=== PATIENT | male | born 1960 | race Caucasian/White ===

== ENCOUNTER 2019-09-05 10:37 | Inpatient (IN) | payer BC ==
--- NOTE | 2019-09-05 12:33 | PDOC.FPRHP ---
- History of Present Illness Chief Complaint: impaired depth perception History of Present Illness: Pt states that this morning at 7am he noticed he had issues with his depth perception when he was trying to put on his shoes. It did not change with positional changes, and he states that the depth perception issues have since resolved. He states that it lasted until he made it to the [facility] ED which was a couple of hours. 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 Patient states he was on a statin for a short while before being taken off of it because he "didn't need it anymore." He currently denies issues with his depth perception, sensory/motor changes, trouble walking, chest pain, shortness of breath, nausea, vomiting, diarrhea, or positional change causing symptoms. - Allergies/Adverse Reactions Allergies Allergy/AdvReac Type Severity Reaction Status Date / Time No Known Allergies Allergy Verified 09/05/19 13:46 - Home Medications Medication Instructions Recorded Confirmed Type Lisinopril 10 mg PO DAILY 09/05/19 09/05/19 History Aspirin-Dipyridamole [Aggrenox] 1 cap PO BID #60 cap 09/06/19 Rx Aspirin-Dipyridamole [Aggrenox] 1 cap PO BID #60 cap 09/06/19 Rx Atorvastatin Calcium 40 mg PO DAILY #60 tablet 09/06/19 Rx Atorvastatin Calcium [Lipitor] 40 mg PO DAILY #30 tab 09/06/19 Rx - History PMH: HTN, L occipital hemorrahic stroke with residual bilateral visual field deficits, seasonal allergies Maintainence: sees opthamologist, last seen approx 1.5 years ago[address] Sees PCP Dr. Hackett yearly. PSH:hernia repair @ 17 y/o on R. Rt thumb repair. Meds: lisinopril 10mg qd, Plavix 75mg qd Allergies: NKDA FH: Mother-mouth cancer. Dad-DM SH: denies alcohol, tobacco, and drug use - Review of Systems General: denies: fever/chills, weight/appetite/sleep changes Eyes: reports: other (residual bilateral right-sided visual field deficits; depth perception resolved). denies: eye pain ENT: reports: rhinorrhea (seasonal allergies). denies: nasal congestion Respiratory: denies: cough, shortness of breath Cardiovascular: denies: chest pain, edema Gastrointestinal: denies: nausea, vomiting, diarrhea, constipation Genitourinary: denies: incontinence, dysuria Skin: denies: rashes, lesions Musculoskeletal: denies: pain, tenderness Neurological: reports: other (right-sided bilateral visual field deficits). denies: numbness, syncope, seizure, weakness - Vital signs BP: [129/72] HR: [62] RR: [16] Tmax: [98.9] Pox: [97]% on [RA] Wt: [93.9kg] - Physical Exam Constitutional: NAD, awake, alert and oriented, well developed HEENT: normocephalic and atraumatic, PERRLA, EOMI, normal nasal mucosa, MMM Neck: supple, FROM Chest: no-tender to palpation, no lesions Heart: RRR, normal S1/S2 Lungs: CTAB, no respiratory distress, no wheezing Abdomen: soft, non-tender, bowel sounds present Musculoskeletal: normal structure, normal tone Neurological: no focal deficit, CN II-XII intact (Bilateral R-sided visual field deficit, HINTS exam neg), normal sensation, DTRs 2+ Skin: no rash/lesions, good turgor, no jaundice Heme/Lymphatic: no unusual bruising or bleeding, no purpura Psychiatric: normal mood and affect, good judgment and insight, intact recent and remote memory FMR H&P: Results - Labs Result Diagrams: 09/06/19 05:41 09/06/19 05:41 - EKG Interpretation EKG: Normal sinus rhythm - Radiology Interpretation CT scan - head Status: report reviewed by me (CT Brain: negative for acute intracranial process CTA: negative for stenosis) FMR H&P: A/P - Problem List (1) HTN (hypertension) Status: Acute Code(s): I10 - ESSENTIAL (PRIMARY) HYPERTENSION (2) Seasonal allergies Status: Acute Code(s): J30.2 - OTHER SEASONAL ALLERGIC RHINITIS - Plan 59M with PMHx of L occipital hemorrhagic stroke with residual bilateral right- sided visual field deficits, HTN, seasonal allergies admitted to obs for TIA workup #TIA Workup -Patient had deficits with his depth perception this am, lasted a few hours and has since resolved -patient denies motor/sensory deficits -neuro exam normal except for residual bilateral right-sided visual field deficit -CT head negative -CTA head negative for stenosis -EKG nsr -MRI brain to look for ischemic changes -stroke floor with telemetry to monitor for arrhythmias -FLP, patient reportedly was on a statin in the past but has since stopped -A1C, wt 93kg with family hx of DM -start patient on atorvastatin 40mg at this time -patient already takes plavix as a home medication, will continue home meds without starting asa #HTN -allow for permissive htn at this time #Seasonal allergies -patient does not take any home meds at this time -will try flonase, encouraged patient to use netipot with distilled water at home Diet: HH Dispo: stroke obs for tia workup Code: Full Code FMR H&P: Upper Level - Plan Date/Time: 09/05/19 1231 I, Stefan Nelson, have evaluated this patient and agree with findings/plan as outlined by intern brand resident. Pertinent changes/additions are listed here. This is a 59 yo male with a pmh of HTN and an occipital hemorrhagic stroke 3 years ago who presented to an outside ER with cc of poor depth perception. 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 He denies any other weakness, paresthesias, dizziness, or SOB. He denies chest pain, vertigo, or nausea. Objective Neuro: CN II-XII intact, no weakness, change in sensation Cardio: RRR, no murmur Respiratory: CTAB, no adventitious sounds Labs/Imaging -Negative CT/CTA of head and neck for intracranial lesions or significant arterial stenosis Please see Fisheries Biologist note for further information A/P TIA vs Stroke rule out -Admit to stroke -Pending AM MRI -EKG NSR, no need for echo at this time -Start low dose statin, AM FLP HTN -Holding home lisinopril for permissive HTN Code: Full Prophylaxis: SCDs Family: Daughter at bedside Diet: HH Fluids: SL Disposition: Home tomorrow PCP: Dr. Lew NEWTON Addendum - Attending - Attending Attestation Date/Time: 09/06/191953 I personally evaluated the patient and discussed the management with Dr. Kat on 09/05/2019 I agree with the History, Examination, Assessment and Plan documented above with any addition or exceptions noted below - 59 yo male with h/o HTN and CVA in past with residual visual field defect presented with episode of change in depth perception. Currently symptoms have resolved. Denies any upper or lower extremity weakness. Denies any sensation. Denies any VARGAS. PMH/PSH/Meds/SH reviewed and agree with resident's documentation. Afebrile VSS Exam repeated by me and agree with resident's findings. CT brain- negative for acute findings. MRI brain - acute left parietal infarct; possible thrombosed vessel versus punctate hemorrhage. A/P: 1) Acute CVA with no residual- repeat CT later tonight to evaluate for hemorrhage. Hold plavix until hemorrhage evaluated. Stroke team and neuro consult. 2) HTN- permissive hypertension; continue to monitor.
[2019-09-05 13:41] VITALS: BMI 27.6
[2019-09-05] MEDS: Fluticasone Propionate Nasal Spray 16 gm Bottle NASAL SCH (14:04)
--- NOTE | 2019-09-05 16:34 | MRI ---
Brain MRI without IV contrast: HISTORY: Vision changes prior stroke protocol COMPARISON: Head CT and head CT angiogram 09/05/2019 FINDINGS: Small focus of increased diffusion and decreased ADC map findings in the posterior left parietal prim arily centrum semiovale region. This is evidence for small primarily white matter infarct, acute. In the region immediately adjacent to the infarct there is a tiny low signal focus on gradient echo i maging which is nonspecific, conceivably this could represent a tiny thrombosed artery or a small hemorrhagic focus. Recommend follow-up noncontrast CT scan examination in 4 to 6 hours to evaluate fo r the possibility of a tiny focus of acute hemorrhage. No evidence for significant mass or midline shift. Visualized expected flow voids are present. IMPRESSION: Evidence for small acute primarily white matter infarct changes in the left posterior parietal region . Tiny hypodense focus on gradient echo images in the sulcus adjacent to the region of the focus of inc reased diffusion possibly a tiny thrombosed artery versus a tiny focus of acute punctate hemorrhage. Recommend consideration for a follow-up CT scan in 4-6 hours.
[2019-09-05] MEDS ORDERED: hydrALAZINE 20 MG/ML VIAL SLOW IVP PRN (18:48)
[2019-09-05] MEDS ORDERED: Atorvastatin Calcium 40 MG TAB PO SCH (21:00)
--- NOTE | 2019-09-05 21:42 | CT ---
EXAM: CT brain without contrast HISTORY: Small area of hemorrhage seen in the left parietal region on prior MRI. COMPARISON: MRI brain 09/05/2019 TECHNIQUE: Multiple contiguous axial images were obtained and a CT of the brain without contrast. FINDINGS: Encephalomalacia is seen in the left parietal lobe. There is a developing hypodensity in th e left parietal lobe at the area where and area of restricted diffusion is seen on MRI consistent with an evolving subacute infarction. There is no evidence of hydrocephalus, intracranial hemorrhage , or extra-axial fluid collection that are able to be seen on this exam.. The calvarium and overlying soft tissues are unremarkable. The visualized paranasal sinuses and masto id air cells are well aerated. IMPRESSION: Evolving left parietal infarction without CT evidence of intracranial hemorrhage.
--- NOTE | 2019-09-06 05:51 | PDOC.FM ---
- Subjective Subjective: Patient reports that he is doing well, no concerns. He does not have any residual symptoms this morning from his stroke yesterday, his depth perception is at baseline. He does not complain of any sensory or motor deficits this morning. Discussed results of MRI and repeat CT scan last night. Patient curious as to what caused his stroke, but has no concerns. - Objective Vital Signs & Weight: Vital Signs (12 hours) Temp Pulse Resp BP Pulse Ox 09/06/19 03:47 98 F 60 18 123/73 98 09/06/19 00:00 97.7 F 52 L 16 141/77 H 97 09/05/19 19:38 98.6 F 60 16 128/74 95 09/05/19 18:08 98.8 F 61 20 142/79 H 98 Weight Weight 97.636 kg Result Diagrams: 09/06/19 05:41 09/06/19 05:41 Phys Exam - Physical Examination Constitutional: NAD HEENT: moist MMs, sclera anicteric Neck: supple, full ROM Respiratory: no wheezing, clear to auscultation bilateral Cardiovascular: RRR, no significant murmur Gastrointestinal: soft, non-tender Musculoskeletal: no edema, pulses present Neurological: normal sensation, moves all 4 limbs normal [id number] Lymphatic: no nodes Psychiatric: normal affect, A&O x 3 Skin: no rash, normal turgor Dx/Plan (1) HTN (hypertension) Code(s): I10 - ESSENTIAL (PRIMARY) HYPERTENSION Status: Acute (2) Seasonal allergies Code(s): J30.2 - OTHER SEASONAL ALLERGIC RHINITIS Status: Acute (3) Stroke Code(s): I63.9 - CEREBRAL INFARCTION, UNSPECIFIED Status: Acute - Plan Plan: 59M with PMHx of L occipital hemorrhagic stroke with residual bilateral right- sided visual field deficits, HTN, seasonal allergies admitted to obs for TIA workup #TIA Workup -Patient had deficits with his depth perception yesterday morning, lasted a few hours and has since resolved -patient denies motor/sensory deficits -neuro exam normal except for residual bilateral right-sided visual field deficit -CT head negative -CTA head negative for stenosis -EKG nsr -MRI brain: small white matter infarct changes in the left posterior parietal region, possibly thrombosed artery vs punctate hemorrhage -f/u CT to monitor for hemorrhage: evolving L parietal infarct, no developing hemorrhage -stroke floor with telemetry to monitor for arrhythmias -FLP: total cholesterol 169, LDL 117, HDL 38 -A1C: 5.7 -started patient on atorvastatin 40mg -patient's plavix was held due to possibility of hemorrhage. Will continue to hold pending neurology recs -neurology consult #HTN -allow for permissive htn at this time #Seasonal allergies -patient does not take any home meds at this time -will try flonase, encouraged patient to use netipot with distilled water at home Diet: Dispo: stroke obs for stroke, neurology consult today Code: Full Code Addendum - Attending - Attending Attestation Date/Time: 09/06/192043 I personally evaluated the patient and discussed the management with Dr. Kat I agree with the History, Examination, Assessment and Plan documented above with any addition or exceptions noted below - Patient denies complaints. Afebrile VSS. A/P: 1) Left CVA- plan to start aggrenox per neurology recommendation. Will order hypercoagulable panel prior to initiation to complete workup for CVA. Plan to d/c home later today if ok with neurology. Also start statin.
[2019-09-06 06:03] LABS: #Basophils 0.1 thou/uL (0.0-0.2); #Eosinphils 0.4 thou/uL (0.0-0.7); #Lymphocytes 2.2 thou/uL (1.20-3.40); #Monocytes 0.6 thou/uL (0.11-0.59); #Neutrophils 4.2 thou/uL (1.40-6.50); %Basophils 1.1 % (0.0-1.0); %Eosinophils 5.2 % (0.0-10.0); %Lymphocytes 29.2 % (21.0-51.0); %Monocytes 8.2 % (0.0-10.0); %Neutrophils 56.2 % (42.0-75.0); Hemoglobin 13.6 g/dL (14.0-18.0); Mean Corpuscular HGB CONC 33.7 g/dL (32.0-36.0); Mean Corpuscular Hemoglobin 30.4 pg (27.0-31.0); Mean Corpuscular Volume 90.2 fL (78.0-98.0); Mean Platelet Volume 6.1 fL (7.4-10.4); Platelet Count 213 thou/uL (130-400); RBC Distribution Width 11.6 % (11.5-14.5); Red Blood Cell (RBC) Count 4.48 mill/uL (4.70-6.10); White Blood Cell (WBC) Count 7.5 thou/uL (4.8-10.8)
[2019-09-06 06:15] LABS: Hemoglobin A1c 5.7 % (4.0-6.0)
[2019-09-06 06:32] LABS: ALT (SGPT) 19 U/L (8-55); AST (SGOT) 16 U/L (5-34); Albumin 3.9 g/dL (3.5-5.0); Alkaline Phosphatase 72 U/L (40-110); Anion Gap 9 mmol/L (10-20); BUN (Urea Nitrogen) 9 mg/dL (8.4-25.7); Bilirubin, Total 0.6 mg/dL (0.2-1.2); Calc. Creatinine Clearance 123 mL/min (70-130); Calcium 8.9 mg/dL (7.8-10.44); Carbon Dioxide 26 mmol/L (22-29); Cardiac Risk 4.4 (Less than 4.5); Chloride 110 mmol/L (98-107); Cholesterol 169 mg/dl (< 200 Desired); Estimated GFR-MDRD 88; Globulin 2.3 g/dL (2.4-3.5); Glucose 100 mg/dL (70-105); HDL Cholesterol 38 mg/dL (>60 Neg Risk); LDL Cholesterol, Calculated 117 mg/dL; Protein, Total 6.2 g/dL (6.0-8.3); Sodium 141 mmol/L (136-145); Triglycerides 72 mg/dL (Less than 150)
[2019-09-06] MEDS: Fluticasone Propionate Nasal Spray 16 gm Bottle NASAL SCH (08:43)
[2019-09-06] MEDS ORDERED: Clopidogrel Bisulfate 75 MG TAB PO SCH (09:00)
[2019-09-06] MEDS ORDERED: FLU VACC QS2019-20(6MOS UP)/PF 60 MCG/0.5 ML SYRINGE IM ONE (14:00)
[2019-09-06 16:03] VITALS: TEMP 98.2
[2019-09-06 16:17] VITALS: BP 118/76
[2019-09-06 16:31] LABS: PTT 30.8 SEC (22.9-36.1); Prothrombin Time 13.5 SEC (12.0-14.7)
[2019-09-06 16:32] LABS: D-Dimer Test 0.55 *mcg/mL (0.27-0.43)
[2019-09-06 16:54] LABS: Cardiolipin IgA Ab 1.3 APL-U/mL (<14 Negative); Cardiolipin IgG Ab 0.6 GPL-U/mL (<10 Negative); Cardiolipin IgM Ab Less than 0.8 MPL-U/mL (<10 Negative); EliA APS New Method **** NEW METHOD ****
[2019-09-06] MEDS ORDERED: Aggrenox 200-25mg CAP PO SCH ×2 (17:00→21:00)
== END 2019-09-06 17:31 | disposition home or self-care (01) | DRG 66 ==
LOC: ERS 10:37 → OBSVTOIN 11:29 → 2SE 11:29
PROVIDERS: ADMIT Family Medicine; ATTEND Family Medicine
PROC: B030ZZZ Magnetic Resonance Imaging (MRI) of Brain (ICD-10-PCS; principal; 2019-09-05)
PROC: B020ZZZ Computerized Tomography (CT Scan) of Brain (ICD-10-PCS; 2019-09-05)
PROC: 3E02340 Introduction of Influenza Vaccine into Muscle, Percutaneous Approach (ICD-10-PCS; 2019-09-06)
DX: I63.532 Cerebral infarction due to unspecified occlusion or stenosis of left posterior cerebral artery (principal); I10 Essential (primary) hypertension; J30.2 Other seasonal allergic rhinitis; R29.700 NIHSS score 0; Z23 Encounter for immunization; H53.8 Other visual disturbances; Z79.899 Other long term (current) drug therapy; Z79.82 Long term (current) use of aspirin; Z79.02 Long term (current) use of antithrombotics/antiplatelets; I69.298 Other sequelae of other nontraumatic intracranial hemorrhage
CPT/HCPCS: 36415; 70450; 70551; 80053; 80061; 81240; 81241; 83036; 83090; 85025; 85240; 85300; 85303; 85305; 85307; 85379; 85598; 85610; 85730; 86147; 99284

== ENCOUNTER 2019-10-20 16:23 | Emergency (ER) | payer BC ==
--- NOTE | 2019-10-20 16:44 | CT ---
Exam: CT brain PROVIDED CLINICAL HISTORY: Stroke alert, left-sided weakness COMPARISON: 09/05/2019 FINDINGS: The ventricular system is normal in size and morphology. No evidence for intracranial hemorrhage or mass effect. Stable encephalomalacia involving the left medial parietal occipital region. The extracranial soft tissues and osseous structures demonstrate no evidence for an acute abnormality. IMPRESSION: No evidence for intracranial hemorrhage or mass effect. Findings communicated to the ordering clinici an 4:42 PM 10/20/2019.
[2019-10-20 17:02] LABS: #Basophils 0.1 thou/uL (0.0-0.2); #Eosinphils 0.4 thou/uL (0.0-0.7); #Lymphocytes 2.2 thou/uL (1.20-3.40); #Monocytes 0.7 thou/uL (0.11-0.59); #Neutrophils 4.9 thou/uL (1.40-6.50); %Basophils 1.1 % (0.0-1.0); %Lymphocytes 26.9 % (21.0-51.0); %Monocytes 8.3 % (0.0-10.0); %Neutrophils 58.8 % (42.0-75.0); Mean Corpuscular Hemoglobin 30.2 pg (27.0-31.0); Mean Corpuscular Volume 91.3 fL (78.0-98.0); Platelet Count 259 thou/uL (130-400); Red Blood Cell (RBC) Count 4.98 mill/uL (4.70-6.10); White Blood Cell (WBC) Count 8.3 thou/uL (4.8-10.8)
[2019-10-20 17:11] LABS: Prothrombin Time 12.8 SEC (12.0-14.7)
[2019-10-20 17:12] LABS: PTT 28.6 SEC (22.9-36.1)
[2019-10-20 17:17] LABS: ALT (SGPT) 23 U/L (8-55); AST (SGOT) 17 U/L (5-34); Albumin 4.5 g/dL (3.5-5.0); Alkaline Phosphatase 106 U/L (40-110); Anion Gap 12 mmol/L (10-20); BUN (Urea Nitrogen) 12 mg/dL (8.4-25.7); Bilirubin, Total 0.6 mg/dL (0.2-1.2); CK (CPK) 88 U/L (30-200); Calc. Creatinine Clearance 0 mL/min (70-130); Calcium 9.5 mg/dL (7.8-10.44); Carbon Dioxide 27 mmol/L (22-29); Chloride 107 mmol/L (98-107); Estimated GFR-MDRD 71; Globulin 2.6 g/dL (2.4-3.5); Glucose 93 mg/dL (70-105); Potassium 3.8 mmol/L (3.5-5.1); Protein, Total 7.1 g/dL (6.0-8.3); Sodium 142 mmol/L (136-145)
--- NOTE | 2019-10-24 13:55 | EKG ---
Test Reason : Blood Pressure : / mmHG Vent. Rate : 072 BPM Atrial Rate : 072 BPM P-R Int : 184 ms QRS Dur : 098 ms QT Int : 378 ms P-R-T Axes : 035 -28 042 degrees QTc Int : 413 ms Normal sinus rhythm Incomplete right bundle branch block Borderline ECG Confirmed by GABRIELLE MORGAN MD ([id number]), editorial cartoonist WAQAS AGUAYO ([id number]) on 10/24/2019 1:55:00 PM Referred By: Confirmed By:GABRIELLE MORGAN MD
== END 2019-10-20 17:20 | disposition home or self-care (01) ==
LOC: ERS 16:23
DX: G62.9 Polyneuropathy, unspecified (principal); I10 Essential (primary) hypertension; F17.220 Nicotine dependence, chewing tobacco, uncomplicated; Z79.899 Other long term (current) drug therapy
CPT/HCPCS: 36416; 70450; 80053; 82550; 84484; 85025; 85610; 85730; 93005